=== PATIENT | female | born 1955 | race Caucasian/White ===

== ENCOUNTER 2016-08-15 20:49 | Inpatient (IN) | payer MEDICARE, OTHER ==
[2016-08-16] MEDS ORDERED: ACETAMINOPHEN TAB 325 MG TAB PO PRN (02:06)
[2016-08-16] MEDS ORDERED: LORazepam 1 MG TAB PO PRN (02:06)
[2016-08-16] MEDS ORDERED: MAG HYDROX/AL HYDROX/SIMETH 30 ML CUP PO PRN (02:06)
[2016-08-16] MEDS ORDERED: MAGNESIUM HYDROXIDE 2,400 MG/10 ML CUP PO PRN (02:06)
[2016-08-16] MEDS ORDERED: NITROGLYCERIN SL TABS 0.4 MG TAB SUBLINGUAL PRN (02:11)
[2016-08-16 02:56] VITALS: BMI 39.5
[2016-08-16] MEDS ORDERED: FLUTICASONE 50MCG/SPRAY NASAL 16GM NASAL SCH (09:00)
[2016-08-16] MEDS ORDERED: carBAMazepine 200 MG TAB PO SCH ×2 (09:00→21:00)
[2016-08-16] MEDS: AZELASTINE 137MCG/SPRAY NASAL SCH ×2 (09:26→20:59)
[2016-08-16] MEDS: PANTOPRAZOLE 40 MG TABLET PO SCH ×2 (09:28→20:56)
[2016-08-16] MEDS: LEVOTHYROXINE 25 MCG TAB PO SCH (09:30)
[2016-08-16] MEDS: ISOSORBIDE MONONITRATE ER 60 MG TAB.ER.24H PO SCH (09:30)
[2016-08-16] MEDS: ATORVASTATIN 40 MG TAB PO SCH (09:30)
[2016-08-16] MEDS: GABAPENTIN 300 MG CAP PO SCH (09:30)
[2016-08-16] MEDS: CALCIUM CARB-VIT D 500MG-200UN 1 EACH TAB PO SCH (09:30)
[2016-08-16] MEDS: MAGNESIUM OXIDE 400 MG TAB PO SCH (09:31)
[2016-08-16] MEDS: MULTIVITAMINS, THERA 1 EACH TAB PO SCH (09:31)
[2016-08-16 09:51] LABS: Basophils # (A) 0.1 k/uL (0-0.2); Basophils % (A) 1 %; CH 28.4; CHCM 32.8; Eosinophils # (A) 0.2 k/uL (0-0.7); Eosinophils % (A) 2 %; HCT 39.1 % (34.0-46.0); HGB 12.7 gm/dL (11.4-16.0); Luc # (Auto) 0.14; Luc % (Auto) 2; Lymphocytes # (A) 1.8 k/uL (1.0-4.8); Lymphocytes % (A) 28 %; MCH 28.2 pg (25.0-35.0); MCHC 32.5 g/dL (31.0-37.0); MCV 86.8 fL (80.0-100.0); Mean Platelet Volume 6.2; Monocytes # (A) 0.5 k/uL (0-1.0); Monocytes % (A) 8 %; Neutrophils # (A) 3.8 k/uL (1.3-7.7); Neutrophils % (A) 60 %; RBC 4.51 m/uL (3.80-5.40); RDW 13.1 % (11.5-15.5); WBC 6.4 k/uL (3.8-10.6); WBC (Perox) 6.62
[2016-08-16 10:07] LABS: ALT 25 U/L (9-52); AST 23 U/L (14-36); Alkaline Phosphatase 178 U/L (38-126); Anion Gap 9 mmol/L; Blood Urea Nitrogen 12 mg/dL (7-17); Calcium 9.6 mg/dL (8.4-10.2); Carbon Dioxide 29 mmol/L (22-30); Chloride 97 mmol/L (98-107); Glucose 89 mg/dL (74-99); Non-African American GFR(MDRD) >60 (>60 ml/min/1.73 sqM); Potassium 5.5 mmol/L (3.5-5.1); Sodium 135 mmol/L (137-145); Total Bilirubin 0.6 mg/dL (0.2-1.3); Total Protein 7.4 g/dL (6.3-8.2)
--- NOTE | 2016-08-16 10:23 | P.HP ---
Psychiatric H&P - . History & Physical: Allergies Allergy/AdvReac Type Severity Reaction Status Date / Time No Known Allergies Allergy Verified 08/16/16 02:58 Vital Signs Temp 97.9 F 08/16/16 02:05 Pulse 75 08/16/16 02:05 Resp 20 08/16/16 02:05 BP 141/90 08/16/16 02:05 Pulse Ox 97 08/15/16 21:07 Intake & Output 08/15/16 08/16/16 08/16/16 18:59 06:59 18:59 Weight 104.598 kg Laboratory Last Values WBC 6.4 k/uL (3.8-10.6) 08/16/16 09:18 RBC 4.51 m/uL (3.80-5.40) 08/16/16 09:18 Hgb 12.7 gm/dL (11.4-16.0) 08/16/16 09:18 Hct 39.1 % (34.0-46.0) 08/16/16 09:18 MCV 86.8 fL (80.0-100.0) 08/16/16 09:18 MCH 28.2 pg (25.0-35.0) 08/16/16 09:18 MCHC 32.5 g/dL (31.0-37.0) 08/16/16 09:18 RDW 13.1 % (11.5-15.5) 08/16/16 09:18 Plt Count 272 k/uL (150-450) 08/16/16 09:18 Neutrophils % 60 % 08/16/16 09:18 Lymphocytes % 28 % 08/16/16 09:18 Monocytes % 8 % 08/16/16 09:18 Eosinophils % 2 % 08/16/16 09:18 Basophils % 1 % 08/16/16 09:18 Neutrophils # 3.8 k/uL (1.3-7.7) 08/16/16 09:18 Lymphocytes # 1.8 k/uL (1.0-4.8) 08/16/16 09:18 Monocytes # 0.5 k/uL (0-1.0) 08/16/16 09:18 Eosinophils # 0.2 k/uL (0-0.7) 08/16/16 09:18 Basophils # 0.1 k/uL (0-0.2) 08/16/16 09:18 Urine Opiates Screen Not Detected (NotDetected) 08/16/16 00:00 Ur Oxycodone Screen Not Detected (NotDetected) 08/16/16 00:00 Urine Methadone Screen Not Detected (NotDetected) 08/16/16 00:00 Ur Propoxyphene Screen Not Detected (NotDetected) 08/16/16 00:00 Ur Barbiturates Screen Not Detected (NotDetected) 08/16/16 00:00 U Tricyclic Antidepress Detected (NotDetected) H 08/16/16 00:00 Ur Phencyclidine Scrn Not Detected (NotDetected) 08/16/16 00:00 Ur Amphetamines Screen Not Detected (NotDetected) 08/16/16 00:00 U Methamphetamines Scrn Not Detected (NotDetected) 08/16/16 00:00 U Benzodiazepines Scrn Not Detected (NotDetected) 08/16/16 00:00 Urine Cocaine Screen Not Detected (NotDetected) 08/16/16 00:00 U Marijuana (THC) Screen Not Detected (NotDetected) 08/16/16 00:00 08/16/16 10:11 IDENTIFYING DATA: This patient is a 61-year-old female who was admitted to the mental health unit through the emergency room. HPI: He presented with family as the patient has been reporting more symptoms of depression over the past several months. Apparently the patient had written a suicide note several years ago but it was saved on her computer. She was rereading that note recently and when she tried to save it again she states she accidentally hit send. They note went to her and her children and naturally they were alarmed. The patient states that she has not been names since the excision of a cyst in her brain 4 years ago. She was forced to medically retire and this was a significant loss in terms of her independence. She states her was in the and she was a very independent woman working and raising their 4 daughters. She finds that she is often forgetful her concentration is impaired her memory is impaired. She has struggle with symptoms of depression and is currently treated with Cymbalta and Pamelor and sees a psychiatrist, Dr. Miles, in [place]. She is endorsing no significant anxiety symptoms no history of panic attacks. She reports his sleep is chronically been impaired, appetite is decreased, energy is low. She does find activities less enjoyable. There are times where she feels hopeless but that is intermittent. She states that she will repeat her suicide note to "remind myself how bad things were before". No history of hypomanic or manic episodes she is endorsing no hallucinations or specific delusions. She states her has 3 firearms at home but insists that they are locked up and she has no access to them. PAST PSYCHIATRIC HISTORY: Her inpatient psychiatric treatment no history of suicide attempts. Most recently she has been working with Dr. Miles in [place] she is prescribed Cymbalta 120 mg at bedtime Pamelor 25 mg at bedtime. The patient is not a good historian in terms of discussing medications. In fact she is not even sure those of the medication she takes but that is what is listed in the ER documentation. She may have taken Zoloft in the past when she underwent a hysterectomy 20 years ago. She does work with a therapist at Dr. Miles's office. 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 She has 4 daughters and 16 grandchildren. She is originally from [place] but during her 's career she has lived in numerous states across the country. She graduated high school with some college classes. 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 She has no history of service. She has 1 brother and 3 sisters. No legal history, no abuse history. MENTAL STATUS EXAM: The patient is an overweight female appearing her stated age she is wearing hospital gowns and is carrying clothing in a brown paper bag. Eye contact is appropriate hygiene grooming adequate. Mood is described as depressed. Affect is constricted. Recently she has had some hopelessness thinking and suicidal thoughts she states she has no suicidal thoughts this morning. She does continue to struggle with the grief reaction related to this loss of independence since her surgery. She reports no homicidal ideation. She endorses no auditory or visual hallucinations she endorses no specific delusions as we reviewed several types. There is no evidence of psychosis. She does not appear hypomanic or manic. Thought process for the most part linear. She does pause frequently struggling with word finding. She is oriented to person place and date. She is able to spell world backwards. She demonstrates no verbal or physical aggressiveness no psychomotor agitation. No evidence of loose associations tangential thinking or flight of ideas. She can be circumstantial at times. STRENGTHS/WEAKNESSES: Strengths: Housing, income, supportive family weaknesses: Cognitive deficits comorbid with depression INTELLECTUAL FUNCTIONING: Premorbidly likely above average IMPRESSIONS: [] 1. 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 History of brain cyst excision, trigeminal neuralgia, obstructive sleep apnea, history of left ankle fracture PLAN: Patient has been admitted to the mental health unit she has signed in voluntarily. The patient is an impaired historian regarding her current medications and past medication trials. I did attempt to contact her via phone with the number she provided there was no answer a voice mail was left. We will gather more information prior to changing her psychotropic medications. She will undergo a routine medical exam with the motel keeper. Social work will meet with the patient to complete a psychosocial assessment and begin discharge planning. We will monitor the patient for safety and encourage her participation in the milieu. We will involve family in her treatment and discharge planning as she will allow.
[2016-08-16] MEDS ORDERED: SODIUM POLYSTYRENE SULFONATE 15 GM/60 ML BOTTLE PO STA (14:23)
--- NOTE | 2016-08-16 14:31 | P.CONS ---
History of Present Illness - Reason for Consult Consult date: 08/16/16 Medical management Requesting physician: Derek Fernandez - Chief Complaint Depression - History of Present Illness This is a 61-year-old female, patient of Dr. David. She has a known past medical history of a benign brain cyst that was removed at [facility] about 5 years ago. She also has a history of trigeminal neuralgia obstructive sleep apnea, myocardial infarction, hyperlipidemia, TIA, migraine, GERD, hypothyroidism and depression. Patient has been dealing with depression since the brain cyst removal. It is forced her to medically retired and has had a significant impact on her life. She's been on antidepressants. It appears that she accidentally sent a suicidal note via email. She had wrote this note years ago and sent it by accident. She does admit to being more depressed. She was seeing Dr. David in the office and Dr. David had recommended that she voluntarily be admitted into the inpatient psychiatry unit. Patient is very teary-eyed during exam. Patient has a history of trigeminal neuralgia which she takes the Tegretol. Her Tegretol level is elevated at 13.1 and that'll be placed on hold. Patient has no seizure history. Her potassium is elevated at 5.5 and she does eat 1-2 bananas almost daily. She denies any fevers chills or sweats. Denies any chest pain or shortness of breath. Denies any nausea or vomiting. She has been having regular bowel movements. Denies any difficulty urinating. Review of Systems Please refer to HPI otherwise unremarkable Past Medical History Past Medical History: Chest Pain / Angina, GERD/Reflux, Hyperlipidemia, Myocardial Infarction ([place]), Sleep Apnea/CPAP/BIPAP, Thyroid Disorder Additional Past Medical History / Comment(s): TIA, migraines, sore on buttock, left ankle fracture 1 year ago required surgery Last Myocardial Infarction Date:: unk History of Any Multi-Drug Resistant Organisms: None Reported Past Surgical History: Bowel Resection, Breast Surgery, Cardiac Ablation, Section, Heart Catheterization, Hysterectomy, Orthopedic Surgery, Tonsillectomy Additional Past Surgical History / Comment(s): brain tumor removal, breast biopsy, Past Anesthesia/Blood Transfusion Reactions: Motion Sickness Past Psychological History: Depression Additional Psychological History / Comment(s): short term memory loss Smoking Status: Never smoker Past Alcohol Use History: None Reported Past Drug Use History: None Reported - Past Family History Mother Family Medical History: CVA/TIA Additional Family Medical History / Comment(s): heart problems Sister(s) Family Medical History: Myocardial Infarction ([place]) Additional Family Medical History / Comment(s): CABG Medications and Allergies Home Medications Medication Instructions Recorded Confirmed Type Atorvastatin [Lipitor] 40 mg PO DAILY 01/09/15 08/16/16 History Estrogens, Conjugated [Premarin] 0.3 mg PO HS 01/09/15 08/16/16 History Levothyroxine Sodium [Synthroid] 25 mcg PO DAILY 01/09/15 08/16/16 History Nortriptyline [Pamelor] 25 mg PO HS 01/09/15 08/16/16 History Omeprazole [PriLOSEC] 20 mg PO BID 01/09/15 08/16/16 History tiZANidine [Zanaflex] 2 mg PO Q8HR PRN 01/09/15 08/16/16 History Calcium Carbonate/Vitamin D3 1 tab PO DAILY 01/10/15 08/16/16 History [Calcium 600-Vit D3 400 Tablet] DULoxetine HCL [Cymbalta] 120 mg PO HS 01/10/15 08/16/16 History Gabapentin [Neurontin] 300 mg PO DAILY 01/10/15 08/16/16 History Magnesium Oxide [Mag-Ox] 400 mg PO DAILY 01/10/15 08/16/16 History Multivitamins, Thera [Multivitamin 1 tab PO DAILY 01/10/15 08/16/16 History (formulary)] Azelastine HCl [Astepro] 137 mcg NASAL BID 01/24/15 08/16/16 History Fluticasone Nasal [place] [Flonase 1 spray NASAL DAILY 01/24/15 08/16/16 History Nasal [place]] Isosorbide Mononitrate ER [Imdur] 60 mg PO DAILY 01/24/15 08/16/16 History Nitroglycerin [Nitroglycerin 1 spray TRANSLINGU Q5M PRN 08/15/16 08/16/16 History 400MCG [place]ughn] carBAMazepine [carBAMazepine XR] 400 mg PO TID 08/16/16 08/16/16 History Allergies Allergy/AdvReac Type Severity Reaction Status Date / Time No Known Allergies Allergy Verified 08/16/16 02:58 Physical Exam Vitals: Vital Signs Temp Pulse Resp BP 08/16/16 02:05 97.9 F 75 20 141/90 Intake and Output 08/15/16 08/16/16 08/16/16 22:59 06:59 14:59 Other: Weight 104.598 kg Head normocephalic Neck supple Lungs clear to auscultation bilaterally no wheezing or crackles Heart regular rate and rhythm S1-S2, no rub or gallop Abdomen is soft nontender nondistended positive bowel sounds no hepatosplenomegaly Extremities no edema Neuro alert and orientated to 3 Results CBC & Chem 7: 08/16/16 09:18 08/16/16 09:18 Labs: Abnormal Lab Results - Last 24 Hours (Table) 08/16/16 08/16/16 Range/Units 09:18 09:18 Sodium 135 L (137-145) mmol/L Potassium 5.5 H (3.5-5.1) mmol/L Chloride 97 L (98-107) mmol/L Alkaline Phosphatase 178 H (38-126) U/L Carbamazepine 13.1 H* ug/mL Assessment and Plan Plan: 1. Major recurrent depressive disorder: Has been admitted to the mental health unit. Continue with current psychiatric care 2. History of benign brain cyst removal at [facility] about 5 years ago. 3. Trigeminal neuralgia takes Tegretol 400 mg twice a day at home. Patient reports trying to taper it down herself. Her level is 13.1. Tegretol has been placed on hold. We'll repeat level in morning. 4. Hyperkalemia likely related to oral potassium intake from bananas. We'll give Kayexalate repeat potassium level in a.m. discussed with patient to avoid bananas for now. 5. History of obstructive sleep apnea uses CPAP at home 6. Hypothyroidism: TSH level within normal range. Continue Synthroid 7. Hyperlipidemia continue Lipitor 8. GERD continue Protonix We'll repeat Tegretol level and CMP and a.m. Thank you for this consultation and allowing us to participate in this patient' s care. Time with Patient: Greater than 30 (Greater than 50% of the total time spent in counseling and coordination of care.I performed an examination of the patient and discussed their management with the physician Director Of Managed Care. I have reviewed the Physician Director Of Managed Care's notes and agree with the documented findings and plan of care)
[2016-08-16] MEDS: ESTROGENS, CONJUGATED 0.3 MG TAB PO SCH (20:56)
[2016-08-16] MEDS ORDERED: DULoxetine HCL 60 MG CAPSULE.DR PO SCH (21:00)
[2016-08-16] MEDS ORDERED: NORTRIPTYLINE 25 MG CAP PO SCH (21:00)
--- NOTE | 2016-08-17 09:29 | P.PN ---
Progress Note - Text Interval history: The patient is found in the hallway she follows me to an interview room. She reports that her mood is still down. She is concerned about her medications and we discussed potential changes we would make. I was able to reach her and had a detailed discussion regarding her past medical course and current psychiatric medicines. Her states that 4 years ago it was not simply an excision of a cyst as there were complications after the surgery. He states a year later they were told that the patient had some brain edema and hemorrhaging which likely accounts for the current cognitive impairment. He does not feel that the Cymbalta or Pamelor have helped with her depression and doesn't feel that they've even reduced her complaint of headache. He states that he is very supportive as well as all of her children and they would like to have her feel less depressed. He states at home she sleeps excessively despite sleeping throughout the night. He states that she does not appear to enjoy activities as she used to. The patient reports that she is attending some groups appetite is stable. Mental status exam: The patient is an overweight female appearing her stated age. Eye contact is appropriate speech is fluent spontaneous nonpressured. She continues to demonstrate cognitive impairment as she frequent he forgets medications we are discussing requiring repeated explanations. She is apologetic each time she has to ask again. She does report having a depressed mood endorses low energy low motivation and less enjoyment of activities. Insight and judgment limited. She is reporting no hallucinations she does not appear hypomanic or manic. There is no verbal or physical aggressiveness demonstrated. Plan: We decided to cross taper her off of Cymbalta onto Lexapro. We will discontinue the Pamelor. Tegretol was found to be supratherapeutic and the dose was reduced to 300 mg twice daily. Her confirmed that she has no seizures and it is being used for trigeminal neuralgia pain only. We will continue to monitor the patient for safety and encourage her participation in the milieu. At this point her plan is to proceed with the cross titration of medication and possibly discharge her Saturday.
[2016-08-17] MEDS: ISOSORBIDE MONONITRATE ER 60 MG TAB.ER.24H PO SCH (09:32)
[2016-08-17] MEDS: MAGNESIUM OXIDE 400 MG TAB PO SCH (09:32)
[2016-08-17] MEDS: ATORVASTATIN 40 MG TAB PO SCH (09:32)
[2016-08-17] MEDS: CALCIUM CARB-VIT D 500MG-200UN 1 EACH TAB PO SCH (09:32)
[2016-08-17] MEDS: AZELASTINE 137MCG/SPRAY NASAL SCH ×2 (09:33→21:06)
[2016-08-17] MEDS: GABAPENTIN 300 MG CAP PO SCH (09:33)
[2016-08-17] MEDS: LEVOTHYROXINE 25 MCG TAB PO SCH (09:33)
[2016-08-17] MEDS: MULTIVITAMINS, THERA 1 EACH TAB PO SCH (09:40)
[2016-08-17] MEDS: PANTOPRAZOLE 40 MG TABLET PO SCH ×2 (09:40→21:05)
[2016-08-17 10:38] LABS: ALT 25 U/L (9-52); AST 32 U/L (14-36); Alkaline Phosphatase 198 U/L (38-126); Anion Gap 12 mmol/L; Blood Urea Nitrogen 8 mg/dL (7-17); Calcium 9.9 mg/dL (8.4-10.2); Carbon Dioxide 27 mmol/L (22-30); Chloride 94 mmol/L (98-107); Glucose 106 mg/dL (74-99); Non-African American GFR(MDRD) >60 (>60 ml/min/1.73 sqM); Potassium 4.3 mmol/L (3.5-5.1); Sodium 133 mmol/L (137-145); Total Bilirubin 0.8 mg/dL (0.2-1.3); Total Protein 8.4 g/dL (6.3-8.2)
[2016-08-17 13:09] LABS: Carbamazepine (Tegretol) 9.3 ug/mL
[2016-08-17] MEDS: carBAMazepine 200 MG TAB PO SCH (21:04)
[2016-08-17] MEDS: DULoxetine HCL 60 MG CAPSULE.DR PO SCH (21:05)
[2016-08-17] MEDS: ESTROGENS, CONJUGATED 0.3 MG TAB PO SCH (21:05)
--- NOTE | 2016-08-18 08:53 | P.PN ---
Progress Note - Text Interval history: The patient is found in the dining room she follows me to an interview room. She reports that her mood is improving. She has spoken with family via phone and continues to find them supportive. We discussed the medication changes and she has no questions or concerns at this time. She is hoping more medication can be eliminated if it is not necessary. She states sleep has been stable appetite is stable. She anticipates a visit from her this evening. Mental status exam: The patient is an overweight female appearing her stated age. She is pleasant and cooperative. She presents with adequate hygiene grooming she is dressed in her own clothing. Speech is fluent spontaneous nonpressured. She reports her moods improving. She is reporting no acute suicidal or homicidal ideation intent or plan. She is endorsing no auditory or visual hallucinations no specific delusions. There is no evidence of psychosis. She does not present hypomanic or manic. She continues to struggle with cognitive limitations. Insight and judgment improving. She demonstrates no verbal or physical aggressiveness. Affect is constricted with limited range. Plan: The patient will continue on her current medications we will continue to plan on tapering off of Cymbalta and onto Lexapro. Pamelor was eliminated last evening. We will continue to monitor her for safety and encourage her participation in the milieu. Vital signs reviewed.
[2016-08-18] MEDS: carBAMazepine 200 MG TAB PO SCH ×2 (09:46→20:55)
[2016-08-18] MEDS: ATORVASTATIN 40 MG TAB PO SCH (09:46)
[2016-08-18] MEDS: CALCIUM CARB-VIT D 500MG-200UN 1 EACH TAB PO SCH (09:46)
[2016-08-18] MEDS: ISOSORBIDE MONONITRATE ER 60 MG TAB.ER.24H PO SCH (09:47)
[2016-08-18] MEDS: MAGNESIUM OXIDE 400 MG TAB PO SCH (09:47)
[2016-08-18] MEDS: LEVOTHYROXINE 25 MCG TAB PO SCH (09:47)
[2016-08-18] MEDS: ESCITALOPRAM 5 MG TAB PO SCH (09:47)
[2016-08-18] MEDS: GABAPENTIN 300 MG CAP PO SCH (09:47)
[2016-08-18] MEDS: AZELASTINE 137MCG/SPRAY NASAL SCH ×2 (10:16→20:56)
[2016-08-18] MEDS: MULTIVITAMINS, THERA 1 EACH TAB PO SCH (10:17)
[2016-08-18] MEDS: PANTOPRAZOLE 40 MG TABLET PO SCH ×2 (10:17→20:56)
[2016-08-18 17:56] LABS: Appearance,Urine Clear (Clear); Bilirubin,Urine Negative (Negative); Glucose,Urine (UA) Negative (Negative); Ketones,Urine Negative (Negative); Leukocyte Esterase,Urine Negative (Negative); Nitrite,Urine Negative (Negative); PH, Urine 5.5 (5.0-8.0); Protein,Urine Negative (Negative); Specific Gravity,Urine 1.004 (1.001-1.035); UA Billing (MACRO vs. MICRO) CHEM; Urobilinogen,Urine <2.0 mg/dL (<2.0)
[2016-08-18] MEDS: DULoxetine HCL 60 MG CAPSULE.DR PO SCH (20:56)
[2016-08-18] MEDS: ESTROGENS, CONJUGATED 0.3 MG TAB PO SCH (20:56)
[2016-08-19 07:01] VITALS: RESP 16
[2016-08-19] MEDS: carBAMazepine 200 MG TAB PO SCH ×2 (09:23→21:01)
[2016-08-19] MEDS: AZELASTINE 137MCG/SPRAY NASAL SCH ×2 (09:23→21:04)
[2016-08-19] MEDS: PANTOPRAZOLE 40 MG TABLET PO SCH ×2 (09:24→21:01)
[2016-08-19] MEDS: LEVOTHYROXINE 25 MCG TAB PO SCH (09:24)
[2016-08-19] MEDS: MAGNESIUM OXIDE 400 MG TAB PO SCH (09:24)
[2016-08-19] MEDS: ISOSORBIDE MONONITRATE ER 60 MG TAB.ER.24H PO SCH (09:24)
[2016-08-19] MEDS: ATORVASTATIN 40 MG TAB PO SCH (09:24)
[2016-08-19] MEDS: GABAPENTIN 300 MG CAP PO SCH (09:24)
[2016-08-19] MEDS: ESCITALOPRAM 5 MG TAB PO SCH (09:24)
[2016-08-19] MEDS: CALCIUM CARB-VIT D 500MG-200UN 1 EACH TAB PO SCH (09:24)
[2016-08-19] MEDS: MULTIVITAMINS, THERA 1 EACH TAB PO SCH (09:24)
--- NOTE | 2016-08-19 11:12 | P.PN ---
Progress Note - Text Interval history: The patient is found in the hallway she follows me to an interview room. She reports that her mood is good. She is anticipating a discharge tomorrow as we discussed. She has been in contact with her family and finds them supportive. Sleep stable appetite stable, she has been attending groups. We again reviewed our plans in terms of medication changes. Mental status exam: The patient is an overweight female appearing her stated age. She presents with good hygiene grooming eye contact is appropriate she is pleasant and cooperative. She is reporting no suicidal or homicidal ideation intent or plan there is no evidence of psychosis hypomania or jackson. She was more focused on our conversation today but does chronically struggle with memory and concentration. There is no verbal or physical aggressiveness. Affect is appropriately expresses. Plan: The patient will continue on her current medications however we will reduce the Cymbalta to 30 mg at bedtime as we continue to taper that medication off. She is demonstrating clinical improvement and we anticipate discharging her tomorrow. Vital signs reviewed.
[2016-08-19] MEDS ORDERED: DULoxetine HCL 30 MG CAPSULE.DR PO SCH (21:00)
[2016-08-19] MEDS: ESTROGENS, CONJUGATED 0.3 MG TAB PO SCH (21:01)
[2016-08-20 06:53] VITALS: BP 115/63; PULSE 84; TEMP 98.1
[2016-08-20] MEDS: ATORVASTATIN 40 MG TAB PO SCH (09:13)
[2016-08-20] MEDS: carBAMazepine 200 MG TAB PO SCH (09:14)
[2016-08-20] MEDS: CALCIUM CARB-VIT D 500MG-200UN 1 EACH TAB PO SCH (09:14)
[2016-08-20] MEDS: AZELASTINE 137MCG/SPRAY NASAL SCH (09:14)
[2016-08-20] MEDS: LEVOTHYROXINE 25 MCG TAB PO SCH (09:15)
[2016-08-20] MEDS: GABAPENTIN 300 MG CAP PO SCH (09:15)
[2016-08-20] MEDS: MULTIVITAMINS, THERA 1 EACH TAB PO SCH (09:15)
[2016-08-20] MEDS: MAGNESIUM OXIDE 400 MG TAB PO SCH (09:15)
[2016-08-20] MEDS: ESCITALOPRAM 5 MG TAB PO SCH (09:15)
[2016-08-20] MEDS: PANTOPRAZOLE 40 MG TABLET PO SCH (09:15)
[2016-08-20] MEDS: ISOSORBIDE MONONITRATE ER 60 MG TAB.ER.24H PO SCH (09:15)
--- NOTE | 2016-08-20 09:26 | P.DS ---
Providers Date of admission: 08/16/16 01:02 Expected date of discharge: 08/20/16 Attending physician: Derek Fernandez Consults: 08/16/16 02:06 Consult Physician Routine Consulting Provider: Jose Mata Consult Reason/Comments: H & P and medical follow up Do you want consulting provider notified?: Yes, Notify in am Primary care physician: Adela Hughes - Discharge Diagnosis(es) (1) Major depressive disorder, recurrent severe without psychotic features Current Visit: Yes Status: Acute Priority: High (2) Cognitive disorder Current Visit: Yes Status: Acute Priority: Medium Hospital Course: Brief summary of admission note: This patient is a 61-year-old female who was admitted to the mental health unit through the emergency room with suicidal ideation. She presented reporting more symptoms of depression over the past several months. Apparently the patient had written a suicide note several years ago but save did to her computer and recently she was rereading it. She states she attempted to save it again but accidentally hit send and it went to her and children. Naturally they were alarmed and she presented to the hospital. 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 She states that her life has not been the same since that removal of the cyst and she has lost a significant amount of independence. For full details please refer to my psychiatric evaluation dated 08/16/2016. Summary of hospital course: The patient was admitted to the mental health unit she did sign in voluntarily. We reviewed her presenting symptoms and medication options. I did speak with her via phone regarding current symptoms and past medication trials. The patient's was an impaired historian regarding medications however her was helpful in providing history. He stated that he did not think that the Pamelor or the Cymbalta were providing any benefit and she had been on those for several years. He did not feel she experienced any reduction in pain because of Cymbalta or Pamelor. We discussed options and she was started on Lexapro as she was titrated down from her previous dose of Cymbalta. Pamelor was discontinued. She was seen by the internal medicine physician for routine history and physical exam. She was prescribed Tegretol up to 400 mg 3 times daily the initial level was supratherapeutic we reviewed reduce this to 300 mg twice daily. The subsequent level was in the therapeutic range. She demonstrated no agitated behavior the patient was pleasant cooperative she attended groups. Family did visit her. The patient denies having any acute suicidal ideation intent or plan while here but did admit to struggling with symptoms of depression. Mental status exam: The patient is an overweight female appearing her stated age, she has good hygiene grooming. She is pleasant and cooperative. She reports that her mood is better her affect is congruent to her reported mood and is appropriately expressive. She is reporting no hopelessness thinking she is reporting no suicidal or homicidal ideation intent or plan. She is endorsing no auditory or visual hallucinations and no specific delusions. There is no evidence of psychosis. She does not appear hypomanic or manic. Thought process can be linear with brief answers because of her ongoing cognitive impairment she does perseverate and struggles with retaining short-term information. She demonstrates no verbal or physical aggressiveness. She is oriented to person place and date. Cognitive abilities have remained stable across the hospitalization. Impressions 1. 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 Removal of brain cyst, trigeminal neuralgia, obstructive sleep apnea, history of left ankle fracture stable 3. Grieving loss of independence The patient will be discharged from the mental health unit today to return home. She will continue Cymbalta 30 mg daily for 6 more days then discontinue she will continue Lexapro 10 mg in the morning. Her Tegretol will continue at 300 mg twice daily Neurontin 300 mg daily. It is possible that she does not require the Neurontin as she is unclear if it provides benefit. There is no imminent safety risk she is appropriate for transition outpatient care, social work will arrange for outpatient mental health follow-up. She is instructed return to hospital if any acute safety concerns. Patient Condition at Discharge: Stable Plan - Discharge Summary New Discharge Prescriptions: DULoxetine HCL [Cymbalta] 30 mg PO HS #6 capsule. Escitalopram Oxalate [Lexapro] 10 mg PO DAILY #30 tab carBAMazepine [TEGretol] 300 mg PO BID #60 tab Discharge Medication List Atorvastatin [Lipitor] 40 mg PO DAILY 01/09/15 [History] Estrogens, Conjugated [Premarin] 0.3 mg PO HS 01/09/15 [History] Levothyroxine Sodium [Synthroid] 25 mcg PO DAILY 01/09/15 [History] Omeprazole [PriLOSEC] 20 mg PO BID 01/09/15 [History] tiZANidine [Zanaflex] 2 mg PO Q8HR PRN 01/09/15 [History] Calcium Carbonate/Vitamin D3 [Calcium 600-Vit D3 400 Tablet] 1 tab PO DAILY 08/20 [History] Magnesium Oxide [Mag-Ox] 400 mg PO DAILY 01/10/15 [History] Multivitamins, Thera [Multivitamin (formulary)] 1 tab PO DAILY 01/10/15 [History ] Azelastine HCl [Astepro] 137 mcg NASAL BID 01/24/15 [History] Fluticasone Nasal [place] [Flonase Nasal [place]] 1 spray NASAL DAILY 01/24/15 [ History] Isosorbide Mononitrate ER [Imdur] 60 mg PO DAILY 01/24/15 [History] Diltiazem Cd [Cardizem CD] 180 mg PO DAILY #60 cap.er.24h 01/26/15 [Rx] Nitroglycerin [Nitroglycerin 400MCG [place]] 1 spray TRANSLINGU Q5M PRN 08/15/16 [ History] DULoxetine HCL [Cymbalta] 30 mg PO HS #6 capsule.dr 08/20/16 [Rx] Escitalopram Oxalate [Lexapro] 10 mg PO DAILY #30 tab 08/20/16 [Rx] Gabapentin [Neurontin] 300 mg PO DAILY cap 08/20/16 [Rx] carBAMazepine [TEGretol] 300 mg PO BID #60 tab 08/20/16 [Rx]
--- NOTE | 2016-09-18 04:43 | ED ---
Psych HPI - General Chief Complaint: Psychiatric Symptoms Stated Complaint: Mental Health Time Seen by Provider: 08/15/16 22:01 Source: patient Mode of arrival: ambulatory - History of Present Illness Initial Comments: Patient presents with major depressive disorder. Patient has a psychiatric history. Patient is complaining of suicidal ideation. Patient has no fever, chills, chest pain. She has no belly or back pain. She has no nausea or vomiting. - Related Data Home Medications Medication Instructions Recorded Confirmed Atorvastatin [Lipitor] 40 mg PO DAILY 01/09/15 08/16/16 Estrogens, Conjugated [Premarin] 0.3 mg PO HS 01/09/15 08/16/16 Levothyroxine Sodium [Synthroid] 25 mcg PO DAILY 01/09/15 08/16/16 Omeprazole [PriLOSEC] 20 mg PO BID 01/09/15 08/16/16 tiZANidine [Zanaflex] 2 mg PO Q8HR PRN 01/09/15 08/16/16 Calcium Carbonate/Vitamin D3 1 tab PO DAILY 01/10/15 08/16/16 [Calcium 600-Vit D3 400 Tablet] Magnesium Oxide [Mag-Ox] 400 mg PO DAILY 01/10/15 08/16/16 Multivitamins, Thera [Multivitamin 1 tab PO DAILY 01/10/15 08/16/16 (formulary)] Azelastine HCl [Astepro] 137 mcg NASAL BID 01/24/15 08/16/16 Fluticasone Nasal [place] [Flonase 1 spray NASAL DAILY 01/24/15 08/16/16 Nasal [place]] Isosorbide Mononitrate ER [Imdur] 60 mg PO DAILY 01/24/15 08/16/16 Nitroglycerin [Nitroglycerin 1 spray TRANSLINGU Q5M PRN 08/15/16 08/16/16 400MCG [place]] Previous Rx's Medication Instructions Recorded Diltiazem Cd [Cardizem CD] 180 mg PO DAILY #60 cap.er.24h 01/26/15 DULoxetine HCL [Cymbalta] 30 mg PO HS #6 capsule. 08/20/16 Escitalopram Oxalate [Lexapro] 10 mg PO DAILY #30 tab 08/20/16 Gabapentin [Neurontin] 300 mg PO DAILY cap 08/20/16 carBAMazepine [TEGretol] 300 mg PO BID #60 tab 08/20/16 Allergies Allergy/AdvReac Type Severity Reaction Status Date / Time No Known Allergies Allergy Verified 08/16/16 02:58 Review of Systems ROS Statement: Those systems with pertinent positive or pertinent negative responses have been documented in the HPI. ROS Other: All systems not noted in ROS Statement are negative. Past Medical History Past Medical History: Chest Pain / Angina, GERD/Reflux, Hyperlipidemia, Myocardial Infarction ([place]), Sleep Apnea/CPAP/BIPAP, Thyroid Disorder Additional Past Medical History / Comment(s): TIA, migraines, sore on buttock, left ankle fracture 1 year ago required surgery Last Myocardial Infarction Date:: unk History of Any Multi-Drug Resistant Organisms: None Reported Past Surgical History: Bowel Resection, Breast Surgery, Cardiac Ablation, Section, Heart Catheterization, Hysterectomy, Orthopedic Surgery, Tonsillectomy Additional Past Surgical History / Comment(s): brain tumor removal, breast biopsy, Past Anesthesia/Blood Transfusion Reactions: Motion Sickness Past Psychological History: Depression Additional Psychological History / Comment(s): short term memory loss Smoking Status: Never smoker Past Alcohol Use History: None Reported Past Drug Use History: None Reported - Past Family History Mother Family Medical History: CVA/TIA Additional Family Medical History / Comment(s): heart problems Sister(s) Family Medical History: Myocardial Infarction ([place]) Additional Family Medical History / Comment(s): CABG General Exam Limitations: no limitations General appearance: alert, in no apparent distress Head exam: Present: atraumatic, normocephalic, normal inspection Eye exam: Present: normal appearance, PERRL, EOMI. Absent: scleral icterus, conjunctival injection, periorbital swelling ENT exam: Present: normal exam, mucous membranes moist Neck exam: Present: normal inspection. Absent: tenderness, meningismus, lymphadenopathy Respiratory exam: Present: normal lung sounds bilaterally. Absent: respiratory distress, wheezes, rales, rhonchi, stridor Cardiovascular Exam: Present: regular rate, normal rhythm, normal heart sounds. Absent: systolic murmur, diastolic murmur, rubs, gallop, clicks GI/Abdominal exam: Present: soft, normal bowel sounds. Absent: distended, tenderness, guarding, rebound, rigid Extremities exam: Present: normal inspection, full ROM, normal capillary refill. Absent: tenderness, pedal edema, joint swelling, calf tenderness Back exam: Present: normal inspection Neurological exam: Present: alert, oriented X3, CN II-XII intact Psychiatric exam: Present: depressed Skin exam: Present: warm, dry, intact, normal color. Absent: rash Course Vital Signs 08/15/16 08/16/16 08/16/16 21:07 02:05 20:54 Temperature 97.4 F L 97.9 F Pulse Rate 93 Pulse Rate [ 75 85 Right Sitting] Respiratory 18 20 16 Rate Blood Pressure 144/71 Blood Pressure 141/90 145/96 [Right Arm Sitting] O2 Sat by Pulse 97 Oximetry 08/17/16 08/17/16 08/17/16 06:45 09:42 17:50 Temperature Pulse Rate Pulse Rate [ 80 96 92 Right Sitting] Respiratory 16 18 18 Rate Blood Pressure Blood Pressure 101/61 121/83 122/77 [Right Arm Sitting] O2 Sat by Pulse Oximetry 08/17/16 08/18/16 08/18/16 17:52 06:54 09:48 Temperature 97.8 F Pulse Rate Pulse Rate [ 92 80 94 Right Sitting] Respiratory 18 12 18 Rate Blood Pressure Blood Pressure 122/77 105/60 125/86 [Right Arm Sitting] O2 Sat by Pulse Oximetry 08/19/16 08/20/16 07:00 06:53 Temperature 97.6 F 98.1 F Pulse Rate Pulse Rate [ 83 84 Right Sitting] Respiratory 16 16 Rate Blood Pressure Blood Pressure 119/73 115/63 [Right Arm Sitting] O2 Sat by Pulse Oximetry Medical Decision Making - Medical Decision Making Patient presents with depression. Patient is about a by psychiatry. Patient will be admitted to the mental health unit. - Lab Data Result diagrams: 08/16/16 09:18 08/17/16 09:45 Lab Results 08/16/16 Range/Units 00:00 Urine Opiates Screen Not Detected (NotDetected) Ur Oxycodone Screen Not Detected (NotDetected) Urine Methadone Screen Not Detected (NotDetected) Ur Propoxyphene Screen Not Detected (NotDetected) Ur Barbiturates Screen Not Detected (NotDetected) U Tricyclic Antidepress Detected H (NotDetected) Ur Phencyclidine Scrn Not Detected (NotDetected) Ur Amphetamines Screen Not Detected (NotDetected) U Methamphetamines Scrn Not Detected (NotDetected) U Benzodiazepines Scrn Not Detected (NotDetected) Urine Cocaine Screen Not Detected (NotDetected) U Marijuana (THC) Screen Not Detected (NotDetected) Disposition Clinical Impression: Depression Disposition: TRANSFER TO PSYCH HOSP/UNIT Condition: Stable
== END 2016-08-20 16:20 | disposition home or self-care (01) | DRG 885 ==
LOC: EC 20:49 → 3MHU 08-16 01:02
PROVIDERS: ADMIT Psychiatry & Neurology Psychiatry; ATTEND Psychiatry & Neurology Psychiatry
DX: F33.2 Major depressive disorder, recurrent severe without psychotic features (principal); R45.851 Suicidal ideations; E87.5 Hyperkalemia; E03.9 Hypothyroidism, unspecified; E66.3 Overweight; K21.9 Gastro-esophageal reflux disease without esophagitis; I25.2 Old myocardial infarction; F09 Unspecified mental disorder due to known physiological condition; G47.9 Sleep disorder, unspecified; R41.3 Other amnesia; G43.909 Migraine, unspecified, not intractable, without status migrainosus; G47.33 Obstructive sleep apnea (adult) (pediatric); E78.5 Hyperlipidemia, unspecified; G50.0 Trigeminal neuralgia; Z82.49 Family history of ischemic heart disease and other diseases of the circulatory system; Z79.899 Other long term (current) drug therapy; Z81.8 Family history of other mental and behavioral disorders; Z86.73 Personal history of transient ischemic attack (TIA), and cerebral infarction without residual deficits; Z79.51 Long term (current) use of inhaled steroids; Z82.3 Family history of stroke; Z90.49 Acquired absence of other specified parts of digestive tract; Z87.81 Personal history of (healed) traumatic fracture; Z90.710 Acquired absence of both cervix and uterus; Z68.39 Body mass index [BMI] 39.0-39.9, adult; Z86.69 Personal history of other diseases of the nervous system and sense organs; Z63.79 Other stressful life events affecting family and household
CPT/HCPCS: 80053; 80156; 80306; 81003; 82075; 84443; 85025

== ENCOUNTER → 2017-03-05 | Outpatient (CLI) | payer MEDICARE, OTHER ==
--- NOTE | 2017-03-05 12:34 | CT ---
EXAMINATION TYPE: CT angio chest DATE OF EXAM: 03/05/2017 COMPARISON: NONE HISTORY: 62 year-old female shortness of breath and dyspnea TECHNIQUE: Contiguous axial scanning of the chest performed with IV Contrast, patient injected with 1 00 ml mL of Omnipaque 350. Coronal/sagittal MIP reconstructions performed. CT DLP: 466.70 mGycm Automated exposure control for dose reduction was used. FINDINGS: The heart is normal size without pericardial effusion. Aorta is normal-caliber with bovine configurat ion to the aortic arch. Scattered nonenlarged mediastinal lymph nodes measure up to 6 mm. No thoracic lymphadenopathy by CT s ize criteria. Satisfactory opacification of the pulmonary arterial system with mild respiratory motion artifacts. A llowing for this limitation, no pulmonary embolus is seen. Mild diffuse bronchial wall thickening and some hazy dependent atelectasis. There is some focal perib ronchial thickening along the proximal aspect of a segmental basilar right lower lobe bronchus, axial image 74 that could represent some endobronchial plugging. 4 mm subpleural pulmonary nodule peripher al right base. No consolidation or pleural effusion. Small hiatal hernia. Visualized upper abdomen shows moderate stool burden. Bones: Endplate spondylosis mid to lower thoracic spine. No osseous destructive process. IMPRESSION: 1. SOME RESPIRATORY MOTION ARTIFACTS. NO PULMONARY EMBOLUS SEEN ALLOWING FOR THIS LIMITATION. 2. MILD DIFFUSE BRONCHIAL WALL THICKENING COULD REPRESENT BRONCHITIS OR UNCONTROLLED ASTHMA. 3. SOME FOCAL PERIBRONCHIAL THICKENING INVOLVING A SEGMENTAL BASILAR RIGHT LOWER LOBE BRANCH. THIS CO ULD REPRESENT SOME ENDOBRONCHIAL PLUGGING. 3 MONTH FOLLOW-UP RECOMMENDED TO REASSESS THIS AREA AND EX CLUDE AN EARLY NEOPLASTIC ETIOLOGY. 4. A 4 MM RIGHT LOWER LOBE PULMONARY NODULE CAN ALSO BE REASSESSED AT THAT TIME. 5. SMALL HIATAL HERNIA.
== END | disposition home or self-care (01) ==
LOC: RADCTMAIN 11:15
PROVIDERS: ATTEND Family Medicine
DX: R91.1 Solitary pulmonary nodule (principal); J98.09 Other diseases of bronchus, not elsewhere classified
CPT/HCPCS: 71275; Q9967

== ENCOUNTER 2017-08-15 16:41 | Emergency (ER) | payer MEDICARE, OTHER ==
[2017-08-15 16:49] LABS: Glucose,Whole Blood 109 mg/dL (75-99)
[2017-08-15 17:27] LABS: Basophils # (A) 0.1 k/uL (0-0.2); Basophils % (A) 1 %; Eosinophils # (A) 0.1 k/uL (0-0.7); Eosinophils % (A) 1 %; HCT 39.2 % (34.0-46.0); HGB 13.5 gm/dL (11.4-16.0); Lymphocytes # (A) 2.8 k/uL (1.0-4.8); Lymphocytes % (A) 26 %; MCH 28.1 pg (25.0-35.0); MCHC 34.4 g/dL (31.0-37.0); MCV 81.7 fL (80.0-100.0); Mean Platelet Volume 7.2; Monocytes # (A) 0.6 k/uL (0-1.0); Monocytes % (A) 6 %; Neutrophils # (A) 6.8 k/uL (1.3-7.7); Neutrophils % (A) 64 %; Platelet Count 289 k/uL (150-450); RDW 12.9 % (11.5-15.5); WBC 10.6 k/uL (3.8-10.6)
[2017-08-15 17:37] LABS: Albumin 4.3 g/dL (3.5-5.0); Calcium 9.7 mg/dL (8.4-10.2); Potassium 4.1 mmol/L (3.5-5.1); Total Bilirubin 0.4 mg/dL (0.2-1.3); Total Protein 6.9 g/dL (6.3-8.2)
[2017-08-15 17:43] LABS: Creatine Kinase 50 U/L (30-135); INR 1.1 (<1.2); Prothrombin Time 10.3 sec (9.0-12.0)
[2017-08-15 17:44] LABS: Partial Thromboplastin Time 20.6 sec (22.0-30.0)
[2017-08-15 17:56] LABS: Creatine Kinase MB 0.4 ng/mL (0.0-2.4); Troponin I <0.012 ng/mL (0.000-0.034)
--- NOTE | 2017-08-15 18:03 | ED ---
General Adult HPI - General Chief complaint: Syncope Stated complaint: dizziness, weakness Time Seen by Provider: 08/15/17 17:19 Source: patient, RN notes reviewed, old records reviewed Mode of arrival: wheelchair Limitations: no limitations - History of Present Illness Initial comments: This is a 62-year-old female to the ER for evaluation today. She presents today for evaluation regarding near syncopal event. Episode. Patient's February concerning episode. Patient visiting family in hospital as she has a grandson who is sick, patient became very stressed, she also missed not eating today. Patient denies headache chest pain shortness of breath or abdominal pain. At this time remains asymptomatic with symptoms resolved - Related Data Home Medications Medication Instructions Recorded Confirmed Atorvastatin [Lipitor] 40 mg PO DAILY 01/09/15 08/15/17 Estrogens, Conjugated [Premarin] 0.3 mg PO HS 01/09/15 08/15/17 Levothyroxine Sodium [Synthroid] 25 mcg PO DAILY 01/09/15 08/15/17 Omeprazole [PriLOSEC] 20 mg PO BID 01/09/15 08/15/17 tiZANidine [Zanaflex] 2 mg PO Q8HR PRN 01/09/15 08/15/17 Calcium Carbonate/Vitamin D3 1 tab PO DAILY 01/10/15 08/15/17 [Calcium 600-Vit D3 400 Tablet] Magnesium Oxide [Mag-Ox] 400 mg PO DAILY 01/10/15 08/15/17 Multivitamins, Thera [Multivitamin 1 tab PO DAILY 01/10/15 08/15/17 (formulary)] Azelastine HCl [Astepro] 137 mcg NASAL BID 01/24/15 08/15/17 Fluticasone Nasal [place] [Flonase 1 spray NASAL DAILY 01/24/15 08/15/17 Nasal [place]] Isosorbide Mononitrate ER [Imdur] 60 mg PO DAILY 01/24/15 08/15/17 Nitroglycerin [Nitroglycerin 1 spray TRANSLINGU Q5M PRN 08/15/16 08/15/17 400MCG [place]] Aspirin [Adult Low Dose Aspirin EC] 81 mg PO DAILY 03/26/17 08/15/17 carBAMazepine [TEGretol] 200 mg PO BID 03/26/17 08/15/17 Escitalopram Oxalate [Lexapro] 10 mg PO HS 08/15/17 08/15/17 Previous Rx's Medication Instructions Recorded Diltiazem Cd [Cardizem CD] 180 mg PO DAILY #60 cap.er.24h 01/26/15 Gabapentin [Neurontin] 300 mg PO DAILY cap 08/20/16 Allergies Allergy/AdvReac Type Severity Reaction Status Date / Time No Known Allergies Allergy Verified 08/15/17 18:02 Review of Systems ROS Statement: Those systems with pertinent positive or pertinent negative responses have been documented in the HPI. ROS Other: All systems not noted in ROS Statement are negative. Past Medical History Past Medical History: Chest Pain / Angina, GERD/Reflux, Hyperlipidemia, Myocardial Infarction ([place]), Osteoarthritis ([place]), Sleep Apnea/CPAP/BIPAP, Thyroid Disorder Additional Past Medical History / Comment(s): TIA, migraines, lt knee pain uses wrap on leg,pt states "spot on lungs", uses cpap Last Myocardial Infarction Date:: unk History of Any Multi-Drug Resistant Organisms: None Reported Past Surgical History: Bowel Resection, Breast Surgery, Cardiac Ablation, Section, Heart Catheterization, Hysterectomy, Orthopedic Surgery, Tonsillectomy Additional Past Surgical History / Comment(s): brain tumor removal, lt breast biopsy, lt ankle surgery Past Anesthesia/Blood Transfusion Reactions: Motion Sickness Past Psychological History: Depression Smoking Status: Never smoker Past Alcohol Use History: None Reported Past Drug Use History: None Reported - Past Family History Mother Family Medical History: CVA/TIA Additional Family Medical History / Comment(s): heart problems Sister(s) Family Medical History: Deep Vein Thrombosis (DVT), Myocardial Infarction ([place]) Additional Family Medical History / Comment(s): CABG General Exam Limitations: no limitations General appearance: alert, in no apparent distress Head exam: Present: atraumatic, normocephalic, normal inspection Eye exam: Present: normal appearance, PERRL, EOMI. Absent: scleral icterus, conjunctival injection, periorbital swelling ENT exam: Present: normal exam, mucous membranes moist Neck exam: Present: normal inspection. Absent: tenderness, meningismus, lymphadenopathy Respiratory exam: Present: normal lung sounds bilaterally. Absent: respiratory distress, wheezes, rales, rhonchi, stridor Cardiovascular Exam: Present: regular rate, normal rhythm, normal heart sounds. Absent: systolic murmur, diastolic murmur, rubs, gallop, clicks GI/Abdominal exam: Present: soft, normal bowel sounds. Absent: distended, tenderness, guarding, rebound, rigid Extremities exam: Present: normal inspection, full ROM, normal capillary refill. Absent: tenderness, pedal edema, joint swelling, calf tenderness Back exam: Present: normal inspection Neurological exam: Present: alert, oriented X3, CN II-XII intact Psychiatric exam: Present: normal affect, normal mood Skin exam: Present: warm, dry, intact, normal color. Absent: rash Course Vital Signs 08/15/17 08/15/17 16:44 17:52 Temperature 98.0 F Pulse Rate 60 77 Respiratory 18 19 Rate Blood Pressure 105/67 O2 Sat by Pulse 96 96 Oximetry - Reevaluation(s) Reevaluation #1: 08/15/17 18:22 Patient is without syncopal event here in the ER, no complaint EKG Findings - EKG Comments: EKG Findings:: AG shows no signs of a 66, [place] 1:30, QRS 90, QTc 433 Medical Decision Making - Medical Decision Making 62 female the ER positive syncopal event here in the hospital, patient does admit to increased stress decreased diet, patient is a synthetic currently can be discharged home - Lab Data Result diagrams: 08/15/17 17:06 08/15/17 17:06 Lab Results 08/15/17 08/15/17 08/15/17 Range/Units 16:45 17:06 17:06 WBC (3.8-10.6) k/uL RBC (3.80-5.40) m/uL Hgb (11.4-16.0) gm/dL Hct (34.0-46.0) % MCV (80.0-100.0) fL MCH (25.0-35.0) pg MCHC (31.0-37.0) g/dL RDW (11.5-15.5) % Plt Count (150-450) k/uL Neutrophils % % Lymphocytes % % Monocytes % % Eosinophils % % Basophils % % Neutrophils # (1.3-7.7) k/uL Lymphocytes # (1.0-4.8) k/uL Monocytes # (0-1.0) k/uL Eosinophils # (0-0.7) k/uL Basophils # (0-0.2) k/uL PT (9.0-12.0) sec INR (<1.2) APTT (22.0-30.0) sec D-Dimer (<0.60) mg/L FEU Sodium 136 L (137-145) mmol/L Potassium 4.1 (3.5-5.1) mmol/L Chloride 99 (98-107) mmol/L Carbon Dioxide 18 L (22-30) mmol/L Anion Gap 19 mmol/L BUN 13 (7-17) mg/dL Creatinine 0.90 (0.52-1.04) mg/dL Est GFR (CKD-EPI)AfAm 81 (>60 ml/min/1.73 sqM) Est GFR (CKD-EPI)NonAf 70 (>60 ml/min/1.73 sqM) Glucose 150 H (74-99) mg/dL POC Glucose (mg/dL) 109 H (75-99) mg/dL POC Glu [employer] ID Rios, Vitor Calcium 9.7 (8.4-10.2) mg/dL Total Bilirubin 0.4 (0.2-1.3) mg/dL AST 26 (14-36) U/L ALT 25 (9-52) U/L Alkaline Phosphatase 202 H (38-126) U/L Total Creatine Kinase 50 (30-135) U/L CK-MB (CK-2) 0.4 (0.0-2.4) ng/mL CK-MB (CK-2) Rel Index 0.8 Troponin I <0.012 (0.000-0.034) ng/mL Total Protein 6.9 (6.3-8.2) g/dL Albumin 4.3 (3.5-5.0) g/dL 08/15/17 08/15/17 08/15/17 Range/Units 17:06 17:06 17:06 WBC 10.6 (3.8-10.6) k/uL RBC 4.80 (3.80-5.40) m/uL Hgb 13.5 (11.4-16.0) gm/dL Hct 39.2 (34.0-46.0) % MCV 81.7 (80.0-100.0) fL MCH 28.1 (25.0-35.0) pg MCHC 34.4 (31.0-37.0) g/dL RDW 12.9 (11.5-15.5) % Plt Count 289 (150-450) k/uL Neutrophils % 64 % Lymphocytes % 26 % Monocytes % 6 % Eosinophils % 1 % Basophils % 1 % Neutrophils # 6.8 (1.3-7.7) k/uL Lymphocytes # 2.8 (1.0-4.8) k/uL Monocytes # 0.6 (0-1.0) k/uL Eosinophils # 0.1 (0-0.7) k/uL Basophils # 0.1 (0-0.2) k/uL PT 10.3 (9.0-12.0) sec INR 1.1 (<1.2) APTT 20.6 L (22.0-30.0) sec D-Dimer 0.22 (<0.60) mg/L FEU Sodium (137-145) mmol/L Potassium (3.5-5.1) mmol/L Chloride (98-107) mmol/L Carbon Dioxide (22-30) mmol/L Anion Gap mmol/L BUN (7-17) mg/dL Creatinine (0.52-1.04) mg/dL Est GFR (CKD-EPI)AfAm (>60 ml/min/1.73 sqM) Est GFR (CKD-EPI)NonAf (>60 ml/min/1.73 sqM) Glucose (74-99) mg/dL POC Glucose (mg/dL) (75-99) mg/dL POC Glu [employer] ID Calcium (8.4-10.2) mg/dL Total Bilirubin (0.2-1.3) mg/dL AST (14-36) U/L ALT (9-52) U/L Alkaline Phosphatase (38-126) U/L Total Creatine Kinase (30-135) U/L CK-MB (CK-2) (0.0-2.4) ng/mL CK-MB (CK-2) Rel Index Troponin I (0.000-0.034) ng/mL Total Protein (6.3-8.2) g/dL Albumin (3.5-5.0) g/dL Disposition Clinical Impression: Stress reaction, Vasovagal syncope Disposition: HOME SELF-CARE Condition: Good Instructions: Syncope (ED) Is patient prescribed a controlled substance at d/c from ED?: No Referrals: Adela Hughes MD [Primary Care Provider] - 1-2 days
[2017-08-15] MEDS ORDERED: SODIUM CHLORIDE 0.9% 1,000 ML IV STA (18:06)
[2017-08-15 18:28] VITALS: RESP 18
[2017-08-15 19:02] VITALS: BP 122/74; PULSE 62; TEMP 97.1
== END 2017-08-15 18:59 | disposition home or self-care (01) ==
LOC: EC 16:41
DX: R55 Syncope and collapse (principal); F43.9 Reaction to severe stress, unspecified; K21.9 Gastro-esophageal reflux disease without esophagitis; E78.5 Hyperlipidemia, unspecified; I25.2 Old myocardial infarction; G47.30 Sleep apnea, unspecified; Z99.89 Dependence on other enabling machines and devices; E07.9 Disorder of thyroid, unspecified; F32.9 Major depressive disorder, single episode, unspecified; Z86.73 Personal history of transient ischemic attack (TIA), and cerebral infarction without residual deficits; Z79.82 Long term (current) use of aspirin; Z79.51 Long term (current) use of inhaled steroids; Z79.899 Other long term (current) drug therapy; Z95.818 Presence of other cardiac implants and grafts
CPT/HCPCS: 36415; 80053; 82550; 82553; 84484; 85025; 85379; 85610; 85730; 93005; 96360; 99284

== ENCOUNTER → 2018-01-17 | Outpatient (CLI) | payer MEDICARE, OTHER ==
--- NOTE | 2018-01-17 16:23 | MR ---
EXAMINATION TYPE: MR cervical spine wo con DATE OF EXAM: 01/17/2018 COMPARISON: 10/18/2014 HISTORY: Spondylosis without myelopathy TECHNIQUE: Multiplanar, multisequence images of the cervical spine were acquired. C2-C3: No evidence for degenerative disc disease. No disc bulge/herniation or protrusion. No Canal stenosis. Foramina are patent bilaterally. C3-C4: Minimal disc bulge is anterior thecal sac contact. No AP spinal canal stenosis present. Neural foramen are patent. C4-C5: Broad-based central disc bulge has mild anterior thecal sac compression. This is in close appr oximation with spinal cord. No AP spinal canal stenosis is present. Neural foramen are patent. C5-C6: Mild disc bulge has anterior thecal sac contact. No cord contact is evident. No spinal canal s tenosis present. Uncovertebral joint hypertrophy has moderate bilateral foraminal narrowing. C6-C7: No evidence for degenerative disc disease. No disc bulge/herniation or protrusion. No Canal stenosis. Foramina are patent bilaterally. C7-T1: No evidence for degenerative disc disease. No disc bulge/herniation or protrusion. No Canal stenosis. Foramina are patent bilaterally. Cervical spinal alignment is normal. Disc desiccation is present. Vertebral body heights are preserve d. Spinal cord maintains normal signal through its visualized course. Craniovertebral junction is nor mal. COMPARISON: Findings appear stable over the interval. No significant progression is evident. IMPRESSION: 1. Disc bulging C3-4 through C5-6 with mild anterior thecal sac compression. No stenosis is evident. Findings are stable from the comparison study. 2. Foraminal stenosis bilaterally C6-5-6 due to uncovertebral joint hypertrophy.
== END ==
LOC: RADMRIMAIN 12:37
PROVIDERS: ATTEND Psychiatry & Neurology Neurology
DX: M99.71 Connective tissue and disc stenosis of intervertebral foramina of cervical region (principal); M50.21 Other cervical disc displacement, high cervical region; G95.29 Other cord compression
CPT/HCPCS: 72141

== ENCOUNTER 2020-10-03 16:51 | Emergency (ER) | payer MEDICARE, OTHER ==
[2020-10-03 17:10] VITALS: BP 113/79; PULSE 78; RESP 16; TEMP 98.2
[2020-10-03] MEDS ORDERED: DIPH,PERTUS(ACELL)TETVAC-LF 0.5 ML VIAL IM ONE (18:24)
--- NOTE | 2020-10-03 18:33 | ED ---
Fall HPI - General Chief Complaint: Fall Stated Complaint: fall yesterday Time Seen by Provider: 10/03/20 18:05 Source: patient, RN notes reviewed Mode of arrival: ambulatory Limitations: no limitations - History of Present Illness Initial Comments: 65-year-old female presents emergency Department chief complaint of a fall. Patient states she went to go grabbed her dog states that she also grabbed the railing but it was broken states that she slipped or fall on her right side. She has an abrasion to her right knee, right first toe pain, right rib pain. No head injury no loss conscious. Patient states it happened yesterday. Patient's unsure when his last tetanus was. No shortness of breath no neck pain no back pain. - Related Data Home Medications Medication Instructions Recorded Confirmed Atorvastatin [Lipitor] 40 mg PO DAILY 01/09/15 08/15/17 Estrogens, Conjugated [Premarin] 0.3 mg PO HS 01/09/15 08/15/17 Levothyroxine Sodium [Synthroid] 25 mcg PO DAILY 01/09/15 08/15/17 Omeprazole [PriLOSEC] 20 mg PO BID 01/09/15 08/15/17 tiZANidine [Zanaflex] 2 mg PO Q8HR PRN 01/09/15 08/15/17 Calcium Carbonate/Vitamin D3 1 tab PO DAILY 01/10/15 08/15/17 [Calcium 600-Vit D3 400 Tablet] Magnesium Oxide [Mag-Ox] 400 mg PO DAILY 01/10/15 08/15/17 Multivitamins, Thera [Multivitamin 1 tab PO DAILY 01/10/15 08/15/17 (formulary)] Azelastine HCl [Astepro] 137 mcg NASAL BID 01/24/15 08/15/17 Fluticasone Nasal [place] [Flonase 1 spray NASAL DAILY 01/24/15 08/15/17 Nasal [place]] Isosorbide Mononitrate ER [Imdur] 60 mg PO DAILY 01/24/15 08/15/17 Nitroglycerin [Nitroglycerin 1 spray TRANSLINGU Q5M PRN 08/15/16 08/15/17 400MCG [place]] Aspirin [Adult Low Dose Aspirin EC] 81 mg PO DAILY 03/26/17 08/15/17 carBAMazepine [TEGretol] 200 mg PO BID 03/26/17 08/15/17 Escitalopram Oxalate [Lexapro] 10 mg PO HS 08/15/17 08/15/17 Previous Rx's Medication Instructions Recorded Diltiazem Cd [Cardizem CD] 180 mg PO DAILY #60 cap.er.24h 01/26/15 Gabapentin [Neurontin] 300 mg PO DAILY cap 08/20/16 Allergies Allergy/AdvReac Type Severity Reaction Status Date / Time No Known Allergies Allergy Verified 10/03/20 17:08 Review of Systems ROS Statement: Those systems with pertinent positive or pertinent negative responses have been documented in the HPI. ROS Other: All systems not noted in ROS Statement are negative. Past Medical History Past Medical History: Chest Pain / Angina, GERD/Reflux, Hyperlipidemia, Myocardial Infarction ([place]), Osteoarthritis (OA), Sleep Apnea/CPAP/BIPAP, Thyroid Disorder Additional Past Medical History / Comment(s): TIA, migraines, lt knee pain uses wrap on leg,pt states "spot on lungs", uses cpap Last Myocardial Infarction Date:: unk History of Any Multi-Drug Resistant Organisms: None Reported Past Surgical History: Bowel Resection, Breast Surgery, Cardiac Ablation, Section, Heart Catheterization, Hysterectomy, Orthopedic Surgery, Tonsillectomy Additional Past Surgical History / Comment(s): brain tumor removal, lt breast biopsy, lt ankle surgery Past Anesthesia/Blood Transfusion Reactions: Motion Sickness Past Psychological History: Depression Smoking Status: Never smoker Past Alcohol Use History: None Reported Past Drug Use History: None Reported - Past Family History Mother Family Medical History: CVA/TIA Additional Family Medical History / Comment(s): heart problems Sister(s) Family Medical History: Deep Vein Thrombosis (DVT), Myocardial Infarction ([place]) Additional Family Medical History / Comment(s): CABG General Exam Limitations: no limitations General appearance: alert, in no apparent distress Head exam: Present: atraumatic, normocephalic, normal inspection Eye exam: Present: normal appearance, PERRL, EOMI. Absent: scleral icterus, conjunctival injection, periorbital swelling ENT exam: Present: normal exam, normal oropharynx, mucous membranes moist Neck exam: Present: normal inspection, full ROM. Absent: tenderness, meningismus, lymphadenopathy Respiratory exam: Present: normal lung sounds bilaterally, chest wall tenderness (Moderate right-sided rib pain, ecchymosis). Absent: respiratory distress, wheezes, rales, rhonchi, stridor Cardiovascular Exam: Present: regular rate, normal rhythm, normal heart sounds. Absent: systolic murmur, diastolic murmur, rubs, gallop, clicks GI/Abdominal exam: Present: soft, normal bowel sounds. Absent: distended, tenderness, guarding, rebound, rigid Extremities exam: Present: other (Right knee there is mild abrasion, tenderness no ecchymosis, right foot there is ecchymosis of the first digit with tenderness to palpation otherwise within normal limits.) Back exam: Present: full ROM. Absent: tenderness, paraspinal tenderness, vertebral tenderness Neurological exam: Present: alert Skin exam: Present: warm, dry, intact, normal color. Absent: rash Course Vital Signs 10/03/20 17:08 Temperature 98.2 F Pulse Rate 78 Respiratory 16 Rate Blood Pressure 113/79 O2 Sat by Pulse 97 Oximetry Medical Decision Making - Medical Decision Making X-ray reviewed shows evidence of ninth rib fracture the right no pneumothorax. Patient's pain is well tolerated, pulse ox within normal limits. X-ray of the knee within normal limits, x-ray of the foot shows questionable fifth digit fracture though patient has no tenderness unlikely be a fracture. Patient we discharged in stable condition return parameters were discussed. Disposition Clinical Impression: Fall, Right rib fracture, Contusion of knee, right, Contusion of right foot Disposition: HOME SELF-CARE Condition: Stable Instructions (If sedation given, give patient instructions): Rib Fracture (ED) Additional Instructions: Please return to the Emergency Department if symptoms worsen or any other concerns. Is patient prescribed a controlled substance at d/c from ED?: No Referrals: Radha Mora MD [Primary Care Provider] - 1-2 days Time of Disposition: 19:09
--- NOTE | 2020-10-03 18:55 | XR ---
Result: History: Right rib status post fall. Comparison: None available. Technique: 4 views of the right ribs with PA chest. Findings: There is questionable nondisplaced right ninth rib fracture. The cardiac silhouette is within normal limits for size and appearance. The lungs are clear without evidence of focal consolidation, pleural effusion, pulmonary edema, or pneumothorax. Impression: 1. Questionable right ninth rib fracture. 2. No acute cardiopulmonary abnormality.
--- NOTE | 2020-10-03 18:57 | XR ---
Result: History: Pain. Comparison: None available. Technique: 3 views of the right knee. Findings: No acute fracture or dislocation is seen. The visualized osseous structures are in anatomic alignmen t. The joint spaces are preserved. There is no significant knee joint effusion. Impression: No acute osseous abnormality.
--- NOTE | 2020-10-03 19:00 | XR ---
Result: History: Pain status post fall. Comparison: None available. Technique: 3 views of the right foot. Findings: The bone mineralization is appropriate for age. There is questionable cortical irregularity of the little toe proximal phalangeal neck. The remainin g visualized osseous structures are in anatomic alignment. The joint spaces are preserved. Impression: Questionable fracture of the little toe proximal phalanx. Recommend correlation with point tenderness .
== END 2020-10-03 19:21 | disposition home or self-care (01) ==
LOC: EC 16:51
DX: S22.31XA Fracture of one rib, right side, initial encounter for closed fracture (principal); S80.01XA Contusion of right knee, initial encounter; S90.111A Contusion of right great toe without damage to nail, initial encounter; E78.5 Hyperlipidemia, unspecified; I25.2 Old myocardial infarction; K21.9 Gastro-esophageal reflux disease without esophagitis; F32.9 Major depressive disorder, single episode, unspecified; Z79.82 Long term (current) use of aspirin; Z79.890 Hormone replacement therapy; Z79.899 Other long term (current) drug therapy; Z86.73 Personal history of transient ischemic attack (TIA), and cerebral infarction without residual deficits; Z23 Encounter for immunization; Z82.49 Family history of ischemic heart disease and other diseases of the circulatory system; W01.0XXA Fall on same level from slipping, tripping and stumbling without subsequent striking against object, initial encounter
CPT/HCPCS: 90471; 90715; 99284

== ENCOUNTER 2021-12-03 17:24 | Emergency (ER) | payer MEDICARE, OTHER ==
--- NOTE | 2021-12-03 17:38 | ED ---
General Adult HPI - General Chief complaint: Upper Respiratory Infection Stated complaint: Sore throat,cough Time Seen by Provider: 12/03/21 17:31 Source: patient Mode of arrival: ambulatory Limitations: no limitations - History of Present Illness Initial comments: Patient presents to the ED complaining of having a productive cough, congestion and sore throat for the past week or so. Patient states that she has had multiple family members who have been sick recently, some who have been diagnosed with Covid. Patient states that she has received her Covid vaccinations, as well as her booster shot. Patient denies fever, headache, focal neuro deficit, neck pain or stiffness, dysphagia, otalgia, chest pain, hemoptysis, dyspnea, palpitations, dizziness, nausea/vomiting/diarrhea, abdominal pain, dysuria or urinary symptoms, leg or calf swelling or pain, or any other symptoms or complaints. - Related Data Home Medications Medication Instructions Recorded Confirmed Atorvastatin [Lipitor] 40 mg PO DAILY 01/09/15 10/03/20 Estrogens, Conjugated [Premarin] 0.3 mg PO Q48H 01/09/15 10/03/20 tiZANidine [Zanaflex] 2 mg PO BID PRN 01/09/15 10/03/20 Calcium Carbonate/Vitamin D3 1 tab PO BID 01/10/15 10/03/20 [Calcium 600-Vit D3 400 Tablet] Magnesium Oxide [Mag-Ox] 400 mg PO DAILY 01/10/15 10/03/20 Fluticasone Nasal [place] [Flonase 1 spray EA NOSTRIL DAILY 01/24/15 10/03/20 Nasal [place]] Isosorbide Mononitrate ER [Imdur] 60 mg PO DAILY 01/24/15 10/03/20 Nitroglycerin [Nitroglycerin 1 spray TRANSLINGU Q5M PRN 08/15/16 10/03/20 400MCG [place]] Aspirin [Adult Low Dose Aspirin EC] 81 mg PO DAILY 03/26/17 10/03/20 Escitalopram [Lexapro] 20 mg PO HS 10/03/20 10/03/20 Famotidine [Pepcid] 20 mg PO HS 10/03/20 10/03/20 Multivit-Min/Iron/Folic/Lutein 1 tab PO DAILY 10/03/20 10/03/20 [Centrum Silver Women Tablet] Omeprazole 40 mg PO DAILY 10/03/20 10/03/20 carBAMazepine [TEGretol XR] 200 mg PO BID 10/03/20 10/03/20 carBAMazepine [TEGretol XR] 200 mg PO DAILY PRN 10/03/20 10/03/20 Previous Rx's Medication Instructions Recorded Diltiazem Cd [Cardizem CD] 180 mg PO DAILY #60 cap.er.24h 01/26/15 Allergies Allergy/AdvReac Type Severity Reaction Status Date / Time No Known Allergies Allergy Verified 12/03/21 17:29 Review of Systems ROS Statement: Those systems with pertinent positive or pertinent negative responses have been documented in the HPI. ROS Other: All systems not noted in ROS Statement are negative. Past Medical History Past Medical History: Chest Pain / Angina, GERD/Reflux, Hyperlipidemia, Myocardial Infarction ([place]), Osteoarthritis (OA), Sleep Apnea/CPAP/BIPAP, Thyroid Disorder Additional Past Medical History / Comment(s): TIA, migraines, lt knee pain uses wrap on leg,pt states "spot on lungs", uses cpap Last Myocardial Infarction Date:: unk History of Any Multi-Drug Resistant Organisms: None Reported Past Surgical History: Bowel Resection, Breast Surgery, Cardiac Ablation, Section, Heart Catheterization, Hysterectomy, Orthopedic Surgery, Tonsillectomy Additional Past Surgical History / Comment(s): brain tumor removal, lt breast biopsy, lt ankle surgery Past Anesthesia/Blood Transfusion Reactions: Motion Sickness Past Psychological History: Depression Smoking Status: Never smoker Past Alcohol Use History: None Reported Past Drug Use History: None Reported - Past Family History Mother Family Medical History: CVA/TIA Additional Family Medical History / Comment(s): heart problems Sister(s) Family Medical History: Deep Vein Thrombosis (DVT), Myocardial Infarction ([place]) Additional Family Medical History / Comment(s): CABG General Exam Limitations: no limitations General appearance: alert, in no apparent distress Head exam: Present: atraumatic, normocephalic Eye exam: Present: normal appearance, EOMI ENT exam: Present: normal oropharynx, mucous membranes moist Neck exam: Present: other (Trachea is in midline). Absent: tenderness, meningismus Respiratory exam: Present: normal lung sounds bilaterally. Absent: respiratory distress, wheezes, rales, rhonchi, stridor Cardiovascular Exam: Present: regular rate, normal rhythm, normal heart sounds, other (Normal radial pulses bilaterally) GI/Abdominal exam: Present: soft. Absent: distended, tenderness, guarding Extremities exam: Absent: tenderness, pedal edema, calf tenderness Neurological exam: Present: alert, oriented X3. Absent: motor sensory deficit Psychiatric exam: Present: normal affect, normal mood Skin exam: Present: warm, dry, intact, normal color Course Vital Signs 12/03/21 12/03/21 12/03/21 17:26 17:38 19:01 Temperature 99.6 F 99.7 F H 99.3 F Pulse Rate 90 96 78 Respiratory 18 18 16 Rate Blood Pressure 118/85 108/82 116/91 O2 Sat by Pulse 100 98 99 Oximetry - Reevaluation(s) Reevaluation #1: 12/03/21 20:00 Patient remains alert and breathing comfortably with a normal room air oxygen saturation and clear breath sounds bilaterally. Patient is aware of her test results, and she feels comfortable being discharged home at this time. Patient was counseled about Covid and isolation precautions. Patient was clearly explained return and follow-up instructions, and she feels comfortable with this plan. Patient was instructed to follow up closely with her primary care provider. Medical Decision Making - Medical Decision Making Patient is breathing comfortably in the ED with a normal room air oxygen saturation. Patient's chest x-ray is clear. Patient is not a candidate for Paxlovid treatment given she reports that her symptoms began about a week ago. We do not have IV monoclonal antibodies in the hospital at this time to administer. Will discharge patient home at this time with instructions to follow up closely with her primary care provider. Patient feels comfortable with this plan. - Lab Data Lab Results 12/03/21 Range/Units 18:54 Influenza Type A (PCR) Not Detected (Not Detectd) Influenza Type B (PCR) Not Detected (Not Detectd) RSV (PCR) Not Detected (Not Detectd) SARS-CoV-2 (PCR) Detected A (Not Detectd) - Radiology Data Chest x-ray: Normal chest. No change. Disposition Clinical Impression: COVID-19 Disposition: HOME SELF-CARE Condition: Stable Instructions (If sedation given, give patient instructions): COVID-19 (Coronavirus Disease 2019) (ED) Additional Instructions: Return to the ER immediately should you develop shortness of breath/trouble breathing, any significant pain, feeling dizzy or faint, or new or worsening symptoms. Follow up closely with your primary care provider. Is patient prescribed a controlled substance at d/c from ED?: No Referrals: Radha Mora MD [Primary Care Provider] - 1-2 days Time of Disposition: 20:05
--- NOTE | 2021-12-03 18:23 | XR ---
EXAMINATION TYPE: XR chest 2V DATE OF EXAM: 12/03/2021 COMPARISON: 08/02/2021 HISTORY: Pain TECHNIQUE: 2 views FINDINGS: Heart and mediastinum are normal. Lungs are clear. Diaphragm is normal. Bony thorax appears normal. IMPRESSION: Normal chest. No change.
[2021-12-03 19:03] VITALS: BP 116/91; PULSE 78; RESP 16; TEMP 99.3
== END 2021-12-03 20:20 | disposition home or self-care (01) ==
LOC: EC 17:24
DX: U07.1 COVID-19 (principal); K21.9 Gastro-esophageal reflux disease without esophagitis; E78.5 Hyperlipidemia, unspecified; I25.2 Old myocardial infarction; M19.90 Unspecified osteoarthritis, unspecified site; E07.9 Disorder of thyroid, unspecified; F32.A Depression, unspecified; Z79.82 Long term (current) use of aspirin; Z79.899 Other long term (current) drug therapy
CPT/HCPCS: 71046; 87636; 99283